=== PATIENT | female | born 1990 ===

== ENCOUNTER 2020-03-24 15:25 | Inpatient (IN) | payer OTHER, MEDICAID ==
[2020-03-24] VITALS (18 sets, daily range): BP systolic 108–157; BP diastolic 55–101; PULSE 70–99; TEMP 97.6–97.9
[~2020-03-24] VITALS: Ht 152.4 cm; Wt 69.5 kg
--- NOTE | 2020-03-24 15:30 | NUR ---
Patient ambulatory onto unit for labor check with report of "large gushes of pink tinged fluid" starting at 1330. , 36.3wks. GBS unknown. Patient reports cerclage in place due to PTL history. EFMs on. VS taken. [employer] + by Milad ROSAS. SVE by Milad RN. Vital signs taken. Assessment completed. and Cheri CLINICAL DIETITIAN notified.
[2020-03-24] MEDS ORDERED: PROMETRIUM200 M1 VG (15:35)
[2020-03-24 15:54] LABS: BASO % 0.2 % (0.0-2.0); EOS # 0.1 (0.0-0.7); EOS % 0.8 % (0-4.0); GRAN # 6.8 (1.4-6.5); GRAN % 71.4 % (42.2-75.2); LYMPH # 1.8 (1.2-3.4); LYMPH % 19.2 % (20.0-51.0); MEAN CELL VOLUME 82 fl (80.0-100.0); MEAN CORPUSCULAR HEMOGLOBIN 28 pg (27.0-31.0); MEAN CORPUSCULAR HGB CONC 35 g/dl (33.0-37.0); MEAN PLATELET VOLUME 11.4 fl (7.4-10.4); MONO # 0.7 (0.1-0.6); MONO % 7.7 % (1.7-9.3); PLATELET COUNT 182 K/mm3 (130-400); RED BLOOD COUNT 4.22 M/mm3 (4.10-5.30); REDCELL DISTRIBUTION WIDTH-CV 13.3 % (11.5-14.5)
[2020-03-24 15:56] LABS: HEMATOCRIT 34.7 % (37.0-47.0)
--- NOTE | 2020-03-24 17:20 | NUR ---
1720- Patient to PACU via bed. Monitors applied. Fonseca to DD. 1750- Patient to room 209 via bed. Monitors applied. Fundus firm, midline, bleeding minimal. Plan of care reviewed. Call light within reach.
[2020-03-25 01:10] VITALS: BP 117/63; PULSE 88; TEMP 97.8
[2020-03-25 04:50] VITALS: BP 111/56; PULSE 100; TEMP 98.1
[2020-03-25 09:15] VITALS: BP 106/62; PULSE 92; TEMP 98.1
[2020-03-25 11:30] VITALS: BP 114/69; PULSE 93; TEMP 98.1
[2020-03-25 15:50] VITALS: BP 117/68; PULSE 100; TEMP 98.7
[2020-03-25 19:30] VITALS: BP 117/65; PULSE 96; TEMP 98.1
[2020-03-26 04:00] VITALS: BP 119/64; PULSE 99; TEMP 98.1
[2020-03-26] MEDS ORDERED: IBU800 M1 PO (07:19)
[2020-03-26] MEDS ORDERED: PERCOCET 325 MG1 TA2 PO (07:19)
[2020-03-26 07:50] VITALS: BP 1217/78; PULSE 100; TEMP 97.5
--- NOTE | 2020-03-26 09:42 | NUR ---
Initial visit; Parents thanked Landscape Contractor for offering congratulations and God's blessings for the of their son. Landscape Contractor thanked family for choosing [facility].
--- NOTE | 2020-03-26 11:47 | NUR ---
PT SLEEPING. REPROT RECEIVED FROM OFF GOING RNAMY. CARE TAKEN OVER BY THIS RN.
[2020-03-26 15:57] VITALS: BP 126/77; PULSE 102; TEMP 98.8
== END 2020-03-26 17:00 | disposition home or self-care (01) | DRG 786 ==
LOC: LDRO 15:25 → OB 15:46 → LDR 15:46 → OB 17:55
PROVIDERS: Obstetrics & Gynecology; ADMIT Obstetrics & Gynecology
PROC: 10D00Z1 Extraction of Products of Conception, Low, Open Approach (ICD-10-PCS; principal; 2020-03-24)
PROC: 0UCC7ZZ Extirpation of Matter from Cervix, Via Natural or Artificial Opening (ICD-10-PCS; 2020-03-24)
DX: O42.013 Preterm premature rupture of membranes, onset of labor within 24 hours of rupture, third trimester (principal); O34.33 Maternal care for cervical incompetence, third trimester; O34.211 Maternal care for low transverse scar from previous cesarean delivery; Z3A.36 36 weeks gestation of pregnancy; Z37.0 Single live birth
CPT/HCPCS: J0690; J1885; J2405; J2590; J2765; J7120